=== PATIENT | male | born 1965 | race Caucasian/White ===

== ENCOUNTER 2020-11-13 19:56 | Inpatient (IN) ==
[2020-11-13] MEDS ORDERED: Lactulose Oral Soln 20 GM/30 ML UDC PO PRN (20:13)
[2020-11-13] MEDS ORDERED: *HR* Dextrose 50 % in Water (Vial) 50 ML VIAL IVP PRN ×2 (20:15→23:35)
[2020-11-13] MEDS ORDERED: Dextrose Gel 15 GM/37.5 ML TUBE PO PRN ×4 (20:15→23:35)
[2020-11-13] MEDS ORDERED: D5% in Water 1,000 ML IVC PRN ×2 (20:15→23:35)
[2020-11-13] MEDS: Insulin LISPRO 300 UNITS/3 ML VIAL SUBQ SCH (23:06)
[2020-11-13] MEDS: Ipratropium/Albuterol Neb 3 ML IH SCH (23:15)
[2020-11-13] MEDS: Budesonide/Formoterol 160/4.5 1 PUFF INH IH SCH (23:15)
[2020-11-14] MEDS: *HR* Buprenorphine HCl 2 MG SUBLINGUAL TABLET SL SCH ×4 (00:39→20:53)
[2020-11-14] MEDS: Ipratropium/Albuterol Neb 3 ML IH SCH ×5 (05:34→20:49)
[2020-11-14] MEDS: *HR* Enoxaparin 40 MG/0.4 ML SYRINGE SQ SCH (05:44)
[2020-11-14 06:17] LABS: Basophils % 0.4 %; Eosinophils # 0.1 K/mcL (0.0-0.6); Eosinophils % 2.9 %; Hematocrit 24.4 % (37.5-50.1); Hemoglobin 7.6 g/dL (12.9-16.9); Immature Granulocytes % 0.4 % (0-4); Lymphocytes # 0.6 K/mcL (0.6-4.6); Lymphocytes % 24.8 %; Mean Corpuscular HGB Conc 31.1 g/dL (31.6-35.5); Mean Corpuscular Hemoglobin 30.2 pg (28.0-33.3); Mean Corpuscular Volume 96.8 fL (83.0-100.0); Mean Platelet Volume 11.8 fL (9.4-12.4); Monocytes # 0.3 K/mcL (0.0-1.3); Monocytes % 11.8 %; Neutrophils # 1.4 K/mcL (1.6-8.9); Red Blood Count 2.52 M/mcL (4.19-5.50); Red Cell Distribution Width 24.8 % (11.5-14.5); Segmented Neutrophils % 59.7 %; White Blood Count 2.4 K/mcL (4.3-11.1)
[2020-11-14 06:32] LABS: Calcium 9.3 mg/dL (8.6-10.3); Potassium 4.8 mEq/L (3.5-5.1)
[2020-11-14 06:43] LABS: Platelet Count 40 K/mcL (140-400)
[2020-11-14 07:42] LABS: Anisocytosis 2+ (Not Present); Hypochromasia Present (Not Present); Platelet Estimate Marked Decrease (Normal)
[2020-11-14 07:43] LABS: Macrocytosis Present (Not Present)
[2020-11-14] MEDS: Budesonide/Formoterol 160/4.5 1 PUFF INH IH SCH ×2 (07:54→20:49)
[2020-11-14] MEDS: Insulin LISPRO 300 UNITS/3 ML VIAL SUBQ SCH ×4 (08:15→20:53)
[2020-11-14] MEDS ORDERED: FLUoxetine 20 MG CAPSULE PO SCH (09:00)
[2020-11-14] MEDS ORDERED: Tiotropium 10 INH DOSE IH SCH (09:00)
[2020-11-14] MEDS: Bumetanide 1 MG TABLET PO SCH (09:38)
[2020-11-14] MEDS: Cholecalciferol (D-3) 1,000 UNIT (25MCG) TABLET PO SCH (09:38)
[2020-11-14] MEDS: Silver Sulfadiazine 50 GM TUBE TP SCH (09:38)
[2020-11-14] MEDS: Aspirin 81 MG TAB.CHEW PO SCH (14:17)
[2020-11-14] MEDS: Lactulose Oral Soln 20 GM/30 ML UDC PO SCH (20:53)
[2020-11-14] MEDS: Insulin DETEMIR 100 UNIT/ML X5UNITS SUBQ SCH (20:54)
[2020-11-15] MEDS: Ipratropium/Albuterol Neb 3 ML IH SCH ×4 (00:31→11:51)
[2020-11-15] MEDS: *HR* Enoxaparin 40 MG/0.4 ML SYRINGE SQ SCH (06:24)
[2020-11-15] MEDS: Budesonide/Formoterol 160/4.5 1 PUFF INH IH SCH ×2 (07:35→21:17)
[2020-11-15] MEDS: FLUoxetine 20 MG CAPSULE PO SCH (08:26)
[2020-11-15] MEDS: Cholecalciferol (D-3) 1,000 UNIT (25MCG) TABLET PO SCH (08:27)
[2020-11-15] MEDS: Aspirin 81 MG TAB.CHEW PO SCH (08:27)
[2020-11-15] MEDS: Bumetanide 1 MG TABLET PO SCH (08:27)
[2020-11-15] MEDS: *HR* Buprenorphine HCl 2 MG SUBLINGUAL TABLET SL SCH ×2 (08:29→20:57)
[2020-11-15] MEDS: Lactulose Oral Soln 20 GM/30 ML UDC PO SCH ×2 (08:29→20:56)
[2020-11-15] MEDS: Insulin LISPRO 300 UNITS/3 ML VIAL SUBQ SCH ×4 (10:19→20:57)
[2020-11-15] MEDS: Tiotropium 10 INH DOSE IH SCH (11:50)
[2020-11-15] MEDS ORDERED: Ipratropium/Albuterol Neb 3 ML IH PRN (12:42)
[2020-11-15] MEDS: Silver Sulfadiazine 50 GM TUBE TP SCH (14:54)
[2020-11-15] MEDS: Insulin DETEMIR 100 UNIT/ML X5UNITS SUBQ SCH (20:57)
[2020-11-16] MEDS: *HR* Enoxaparin 40 MG/0.4 ML SYRINGE SQ SCH (06:34)
[2020-11-16] MEDS: Insulin LISPRO 300 UNITS/3 ML VIAL SUBQ SCH ×4 (07:42→20:10)
[2020-11-16] MEDS: *HR* Buprenorphine HCl 2 MG SUBLINGUAL TABLET SL SCH ×2 (09:47→20:08)
[2020-11-16] MEDS: Aspirin 81 MG TAB.CHEW PO SCH (09:47)
[2020-11-16] MEDS: Cholecalciferol (D-3) 1,000 UNIT (25MCG) TABLET PO SCH (09:48)
[2020-11-16] MEDS: FLUoxetine 20 MG CAPSULE PO SCH (09:48)
[2020-11-16] MEDS: Bumetanide 1 MG TABLET PO SCH (09:48)
[2020-11-16] MEDS: Lactulose Oral Soln 20 GM/30 ML UDC PO SCH ×2 (09:49→20:08)
[2020-11-16] MEDS: Silver Sulfadiazine 50 GM TUBE TP SCH (09:52)
[2020-11-16] MEDS: Tiotropium 10 INH DOSE IH SCH (09:58)
[2020-11-16] MEDS: Budesonide/Formoterol 160/4.5 1 PUFF INH IH SCH ×2 (10:00→22:14)
[2020-11-16] MEDS: Insulin DETEMIR 100 UNIT/ML X5UNITS SUBQ SCH (20:07)
[2020-11-17] MEDS: *HR* Enoxaparin 40 MG/0.4 ML SYRINGE SQ SCH (05:12)
[2020-11-17 07:11] LABS: Hematocrit 24.3 % (37.5-50.1); Hemoglobin 7.7 g/dL (12.9-16.9); Mean Corpuscular HGB Conc 31.7 g/dL (31.6-35.5); Mean Corpuscular Hemoglobin 30.4 pg (28.0-33.3); Mean Platelet Volume 9.6 fL (9.4-12.4); Red Blood Count 2.53 M/mcL (4.19-5.50)
[2020-11-17 07:17] LABS: Platelet Count 29 K/mcL (140-400)
[2020-11-17] MEDS: Insulin LISPRO 300 UNITS/3 ML VIAL SUBQ SCH ×4 (07:28→20:06)
[2020-11-17 07:31] LABS: Calcium 8.5 mg/dL (8.6-10.3); Potassium 3.7 mEq/L (3.5-5.1)
[2020-11-17] MEDS: Lactulose Oral Soln 20 GM/30 ML UDC PO SCH ×2 (08:52→20:05)
[2020-11-17] MEDS: Cholecalciferol (D-3) 1,000 UNIT (25MCG) TABLET PO SCH (08:53)
[2020-11-17] MEDS: Bumetanide 1 MG TABLET PO SCH (08:53)
[2020-11-17] MEDS: *HR* Buprenorphine HCl 2 MG SUBLINGUAL TABLET SL SCH ×2 (08:53→20:06)
[2020-11-17] MEDS: Aspirin 81 MG TAB.CHEW PO SCH (08:53)
[2020-11-17] MEDS: FLUoxetine 20 MG CAPSULE PO SCH (08:53)
[2020-11-17] MEDS: Budesonide/Formoterol 160/4.5 1 PUFF INH IH SCH ×2 (09:44→21:36)
[2020-11-17] MEDS: Tiotropium 10 INH DOSE IH SCH (09:46)
[2020-11-17] MEDS: Insulin DETEMIR 100 UNIT/ML X5UNITS SUBQ SCH (20:06)
[2020-11-18] MEDS: *HR* Enoxaparin 40 MG/0.4 ML SYRINGE SQ SCH (05:17)
[2020-11-18] MEDS: Lactulose Oral Soln 20 GM/30 ML UDC PO SCH ×2 (08:12→19:55)
[2020-11-18] MEDS: Bumetanide 1 MG TABLET PO SCH (08:13)
[2020-11-18] MEDS: *HR* Buprenorphine HCl 2 MG SUBLINGUAL TABLET SL SCH ×2 (08:13→19:55)
[2020-11-18] MEDS: FLUoxetine 20 MG CAPSULE PO SCH (08:13)
[2020-11-18] MEDS: Cholecalciferol (D-3) 1,000 UNIT (25MCG) TABLET PO SCH (08:13)
[2020-11-18] MEDS: Aspirin 81 MG TAB.CHEW PO SCH (08:14)
[2020-11-18] MEDS: Insulin LISPRO 300 UNITS/3 ML VIAL SUBQ SCH ×4 (08:22→20:05)
[2020-11-18] MEDS: Budesonide/Formoterol 160/4.5 1 PUFF INH IH SCH ×2 (10:33→22:02)
[2020-11-18] MEDS: Tiotropium 10 INH DOSE IH SCH (10:34)
[2020-11-18] MEDS: Insulin DETEMIR 100 UNIT/ML X5UNITS SUBQ SCH (20:04)
[2020-11-19] MEDS: *HR* Enoxaparin 40 MG/0.4 ML SYRINGE SQ SCH (05:17)
[2020-11-19 06:28] LABS: Hematocrit 27.7 % (37.5-50.1); Hemoglobin 8.7 g/dL (12.9-16.9); Mean Corpuscular HGB Conc 31.4 g/dL (31.6-35.5); Mean Corpuscular Hemoglobin 30.5 pg (28.0-33.3); Mean Corpuscular Volume 97.2 fL (83.0-100.0); Mean Platelet Volume 12.3 fL (9.4-12.4); Red Blood Count 2.85 M/mcL (4.19-5.50); Red Cell Distribution Width 23.1 % (11.5-14.5); White Blood Count 2.8 K/mcL (4.3-11.1)
[2020-11-19 06:30] LABS: Platelet Count 37 K/mcL (140-400)
[2020-11-19] MEDS: Lactulose Oral Soln 20 GM/30 ML UDC PO SCH ×2 (09:09→20:38)
[2020-11-19] MEDS: Insulin LISPRO 300 UNITS/3 ML VIAL SUBQ SCH ×4 (09:09→20:44)
[2020-11-19] MEDS: Cholecalciferol (D-3) 1,000 UNIT (25MCG) TABLET PO SCH (09:10)
[2020-11-19] MEDS: Aspirin 81 MG TAB.CHEW PO SCH (09:10)
[2020-11-19] MEDS: Bumetanide 1 MG TABLET PO SCH (09:10)
[2020-11-19] MEDS: FLUoxetine 20 MG CAPSULE PO SCH (09:10)
[2020-11-19] MEDS: *HR* Buprenorphine HCl 2 MG SUBLINGUAL TABLET SL SCH ×2 (09:10→20:37)
[2020-11-19] MEDS: Budesonide/Formoterol 160/4.5 1 PUFF INH IH SCH ×2 (10:56→21:26)
[2020-11-19] MEDS: Tiotropium 10 INH DOSE IH SCH (11:02)
[2020-11-19] MEDS: Insulin DETEMIR 100 UNIT/ML X5UNITS SUBQ SCH (20:39)
[2020-11-20] MEDS: *HR* Enoxaparin 40 MG/0.4 ML SYRINGE SQ SCH (04:56)
[2020-11-20 05:52] VITALS: BP 142/86
[2020-11-20] MEDS: Insulin LISPRO 300 UNITS/3 ML VIAL SUBQ SCH (07:29)
[2020-11-20] MEDS: Bumetanide 1 MG TABLET PO SCH (08:29)
[2020-11-20] MEDS: FLUoxetine 20 MG CAPSULE PO SCH (08:29)
[2020-11-20] MEDS: Lactulose Oral Soln 20 GM/30 ML UDC PO SCH (08:29)
[2020-11-20] MEDS: Aspirin 81 MG TAB.CHEW PO SCH (08:30)
[2020-11-20] MEDS: Cholecalciferol (D-3) 1,000 UNIT (25MCG) TABLET PO SCH (08:30)
[2020-11-20] MEDS: *HR* Buprenorphine HCl 2 MG SUBLINGUAL TABLET SL SCH (08:30)
[2020-11-20] MEDS: Budesonide/Formoterol 160/4.5 1 PUFF INH IH SCH (09:29)
[2020-11-20] MEDS: Tiotropium 10 INH DOSE IH SCH (09:30)
[2020-11-20] MEDS ORDERED: Ondansetron ODT 4 MG TAB.RAPDIS SL ONE (09:52)
== END 2020-11-20 10:53 | disposition home health service (06) | DRG 945 ==
LOC: INPPIK 19:56
PROVIDERS: ADMIT Family Medicine; ATTEND Family Medicine